=== PATIENT | female | born 1985 | race Caucasian/White ===

== ENCOUNTER → 2022-10-08 | Outpatient (CLI) | payer BC ==
--- NOTE | 2022-10-08 16:16 | US ---
EXAMINATION TYPE: US thyroid st tissue head/neck DATE OF EXAM: 10/08/2022 COMPARISON: NONE CLINICAL INDICATION: Female, 37 years old with history of E04.1 THYROID NODULE; Thyroid nodule GLAND SIZE: Right Lobe: 5.5 x 1.4 x 1.5 cm Overall Parenchyma: homogenous Left Lobe: 4.6 x 1.0 x 1.6 cm Overall Parenchyma: homogeneous Isthmus Thickness: .2 cm NODULES RIGHT: # of nodules measured on right: 0 LEFT: # of nodules measured on left: 0 ISTHMUS: # of nodules measured in the isthmus: 0 Bilateral neck scanned, no evidence of lymphadenopathy. IMPRESSION: Borderline sized thyroid gland. Normal homogeneous appearance. No discrete nodules.
[2022-10-08 20:39] LABS: T4, Free (Free Thyroxine) 1.07 ng/dL (0.800-1.800)
[2022-10-08 20:40] LABS: Thyroid Peroxidase Antibodies <9.0 U/mL (0.0-33.0)
[2022-10-09 10:08] LABS: Free Kappa Lt Chain Qnt, Serum 1.21 mg/dL (0.33-1.94)
== END | disposition home or self-care (01) ==
LOC: RADUSWWP 15:34
PROVIDERS: ATTEND Allergy & Immunology
DX: E04.1 Nontoxic single thyroid nodule (principal); R10.0 Acute abdomen; R61 Generalized hyperhidrosis; R53.83 Other fatigue
CPT/HCPCS: 76536; 82784; 83883; 84439; 84443; 85652; 86376